=== PATIENT | female | born 1970 | race Hispanic/Latino ===

== ENCOUNTER 2019-06-30 19:24 | Emergency (ER) | payer BC ==
[2019-06-30] MEDS ORDERED: HYDROCODONE/APAP 10/325 TAB ONE (19:55)
--- NOTE | 2019-06-30 20:24 | RAD REPORT ---
EXAM DESCRIPTION: RAD - Shoulder Left 2 View - 06/30/2019 7:54 pm CLINICAL HISTORY: Nontraumatic left shoulder pain COMPARISON: None. TECHNIQUE: Internal and external rotation views of the left shoulder were obtained. FINDINGS: There is no fracture or dislocation. AC joint is normal in appearance. Acromial humeral erica int space is normal. Oval calcifications are present adjacent to the greater tuberosity. This is a ty pical calcific tendinitis appearance IMPRESSION: Left shoulder calcific tendinitis pattern. This can explain left shoulder pain.
[2019-06-30] MEDS ORDERED: KETOROLAC 30 MG/ML INJ ONE (20:49)
--- NOTE | 2019-06-30 21:11 | ER ---
Nurse's Notes [facility] Name: Trevor Mayberry Age: 48 yrs Sex: Female : 1970 Arrival Date: 06/30/2019 Time: 19:30 Bed 15 Private MD: Diagnosis: Pain in left shoulder Presentation: 06/30 19:39 Presenting complaint: Patient states: L shoulder pain with ROM x 2 days. Denies injury. aa1 CMS intact. Transition of care: patient was not received from another setting of care. Onset of symptoms was June 28, 2019. Risk Assessment: Do you want to hurt yourself or someone else? Patient reports no desire to harm self or others. Initial Sepsis Screen: Does the patient meet any 2 criteria? No. Patient's initial sepsis screen is negative. Does the patient have a suspected source of infection? No. Patient's initial sepsis screen is negative. Care prior to arrival: None. 19:39 Method Of Arrival: Ambulatory aa1 19:39 Acuity: AWAIS 4 aa1 Triage Assessment: 19:39 General: Appears in no apparent distress. comfortable, Behavior is calm, cooperative, aa1 appropriate for age. Historical: - Allergies: 19:53 No Known Allergies; aa1 - Home Meds: 19:53 Januvia 100 mg oral tab 1 tab once daily [Active]; lisinopril 10 mg Oral tab [Active]; aa1 rosuvastatin 40 mg oral tab 1 tab once daily [Active]; anastrozole 1 mg oral tab 1 tab once daily [Active]; metformin 1,000 mg Oral tab 1 tab 2 times per day [Active]; - PMHx: 19:53 Diabetes - NIDDM; High Cholesterol; Hypertension; Cancer, Breast; aa1 - PSHx: 19:53 Hysterectomy; Mastectomy, Right; aa1 - Immunization history:: Flu vaccine is up to date. - Social history:: Smoking status: Patient/guardian denies using tobacco. - Ebola Screening: : No symptoms or risks identified at this time. Screenin:56 Abuse screen: Denies threats or abuse. Nutritional screening: No deficits noted. jb4 Tuberculosis screening: No symptoms or risk factors identified. Fall Risk None identified. Assessment: 19:56 General: Appears in no apparent distress. uncomfortable, Behavior is calm, cooperative, jb4 appropriate for age. Pain: Complains of pain in anterior aspect of left shoulder and left bicep Pain does not radiate. Pain currently is 10 out of 10 on a pain scale. Quality of pain is described as It just hurts really bad. Neuro: Level of Consciousness is awake, alert, obeys commands, Oriented to person, place, time, situation. Cardiovascular: Patient's skin is warm and dry. Respiratory: Airway is patent Respiratory effort is even, unlabored, Respiratory pattern is regular, symmetrical. GI: No deficits noted. No signs and/or symptoms were reported involving the gastrointestinal system. : No deficits noted. No signs and/or symptoms were reported regarding the genitourinary system. EENT: No deficits noted. No signs and/or symptoms were reported regarding the EENT system. Derm: Skin is intact, Skin is pink, warm \T\ dry. Musculoskeletal: Circulation, motion, and sensation intact. Range of motion: intact in all extremities. 21:20 Reassessment: Patient appears in no apparent distress at this time. Patient and/or jb4 family updated on plan of care and expected duration. Pain level reassessed. Patient is alert, oriented x 3, equal unlabored respirations, skin warm/dry/pink. PT verbalized understanding of d/c and follow up instructions. Vital Signs: 19:39 BP 185 / 100; Pulse 87; Resp 16; Temp 99.4; Pulse Ox 100% on R/A; Weight 72.57 kg; aa1 Height 5 ft. 0 in. (152.40 cm); Pain 4/10; 21:20 BP 160 / 100; Pulse 90; Resp 18; Pulse Ox 100% on R/A; jb4 19:39 Body Mass Index 31.25 (72.57 kg, 152.40 cm) aa1 ED Course: 19:30 Patient arrived in ED. cf2 19:35 Marlon Renteria PA is PHCP. jmm 19:35 Ilya Conley MD is Attending Physician. jmm 19:39 Arm band placed on right wrist. aa1 19:46 Triage completed. aa1 19:51 Alton Spring, NOBLE is Primary Nurse. jb4 19:53 X-ray completed. jr1 19:55 Shoulder Left (2 View) XRAY In Process Unspecified. EDMS 19:56 Patient has correct armband on for positive identification. Bed in low position. Call jb4 light in reach. Side rails up X 1. Pulse ox on. NIBP on. 21:09 Ronnell Mora MD is Referral Physician. ilya 21:20 No provider procedures requiring assistance completed. Patient did not have IV access jb4 during this emergency room visit. Administered Medications: 19:55 Drug: Minto 10 mg-325 mg 1 tabs {Note: Rass score of 0.} Route: PO; jb4 20:25 Follow up: Response: No adverse reaction; Pain is decreased; RASS: Alert and Calm (0) jb4 20:51 Drug: Ketorolac 30 mg Route: IM; Site: right gluteus; 21:15 Follow up: Response: No adverse reaction; Pain is decreased jb4 Outcome: : Discharge ordered by . astrid 21:20 Discharged to home ambulatory, with family. jb4 21:20 Condition: stable 21:20 Discharge instructions given to patient, family, Instructed on discharge instructions, follow up and referral plans. medication usage, Demonstrated understanding of instructions, follow-up care, medications, Prescriptions given X 2. 21:25 Patient left the ED. jb4 Signatures: Dispatcher [employer] EDMS Megan Salmeron RN RN aa1 Marlon Renteria PA PA jmm Ringgold, Jennifer jr1 Alton Spring, NOBLE RN jb4 Una Pond [place] 2
--- NOTE | 2019-06-30 21:11 | EDPHYS ---
Physician Documentation [facility] Name: Trevor Mayberry Age: 48 yrs Sex: Female : 1970 Arrival Date: 06/30/2019 Time: 19:30 Bed 15 Private MD: ED Physician Ilya Conley HPI: 06/30 19:39 This 48 yrs old Female presents to ER via Ambulatory with complaints of jmm Shoulder Pain. 19:39 The patient or guardian complains of pain. Onset: The symptoms/episode began/occurred jmm gradually, 1 day(s) ago. Modifying factors: the symptoms are alleviated by remaining still, The symptoms are aggravated by movement. This is a 48 year old female with no chronic medical conditions that presents to the ED with complaints of left shoulder pain. 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 Denies known injury. Denies chest pain. Historical: - Allergies: 19:53 No Known Allergies; aa1 - Home Meds: 19:53 Januvia 100 mg oral tab 1 tab once daily [Active]; lisinopril 10 mg Oral tab [Active]; aa1 rosuvastatin 40 mg oral tab 1 tab once daily [Active]; anastrozole 1 mg oral tab 1 tab once daily [Active]; metformin 1,000 mg Oral tab 1 tab 2 times per day [Active]; - PMHx: 19:53 Diabetes - NIDDM; High Cholesterol; Hypertension; Cancer, Breast; aa1 - PSHx: 19:53 Hysterectomy; Mastectomy, Right; aa1 - Immunization history:: Flu vaccine is up to date. - Social history:: Smoking status: Patient/guardian denies using tobacco. - Ebola Screening: : No symptoms or risks identified at this time. ROS: 19:39 Constitutional: Negative for fever, chills, and weight loss, Cardiovascular: Negative jmm for chest pain, palpitations, and edema, Respiratory: Negative for shortness of breath, cough, wheezing, and pleuritic chest pain. 19:39 MS/extremity: Positive for pain. 19:39 All other systems are negative. Exam: 19:39 Constitutional: This is a well developed, well nourished patient who is awake, alert, jmm and in no acute distress. Head/Face: atraumatic. Eyes: EOMI, no conjunctival erythema appreciated ENT: Moist Mucus Membranes Neck: Trachea midline, Supple Chest/axilla: Normal chest wall appearance and motion. Cardiovascular: Regular rate and rhythm. 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 . 19:39 Skin: Appearance: Color: normal in color. 19:39 Neuro: Orientation: is normal, Mentation: is normal, Memory: is normal. 19:39 Psych: Behavior/mood is pleasant, cooperative. Vital Signs: 19:39 BP 185 / 100; Pulse 87; Resp 16; Temp 99.4; Pulse Ox 100% on R/A; Weight 72.57 kg; aa1 Height 5 ft. 0 in. (152.40 cm); Pain 4/10; 21:20 BP 160 / 100; Pulse 90; Resp 18; Pulse Ox 100% on R/A; jb4 19:39 Body Mass Index 31.25 (72.57 kg, 152.40 cm) aa1 MDM: 19:39 Patient medically screened. [facility] 20:54 Data reviewed: vital signs, nurses notes. [facility] 21:05 Data reviewed: radiologic studies, plain films. Counseling: I had a detailed discussion [facility] with the patient and/or guardian regarding: the historical points, exam findings, and any diagnostic results supporting the discharge/admit diagnosis, radiology results, the need for outpatient follow up, to return to the emergency department if symptoms worsen or persist or if there are any questions or concerns that arise at home. ED course: Patient is alert and non toxic in appearance in the ED. Patient is advised to follow up with ortho and otherwise given strict return precautions. Patient understood and agrees with the plan of care. . 06/30 19:43 Order name: Shoulder Left (2 View) XRAY; Complete Time: 20:29 [facility] Administered Medications: 19:55 Drug: [place] 10 mg-325 mg 1 tabs {Note: Rass score of 0.} Route: PO; jb 20:25 Follow up: Response: No adverse reaction; Pain is decreased; RASS: Alert and Calm (0) [facility] 20:51 Drug: Ketorolac 30 mg Route: IM; Site: right gluteus; wh 21:15 Follow up: Response: No adverse reaction; Pain is decreased jb4 Disposition: 06/30/19 21:09 Discharged to Home. Impression: Pain in left shoulder. - Condition is Stable. - Discharge Instructions: Shoulder Pain. - Prescriptions for Ibuprofen 800 mg Oral Tablet - take 1 tablet by ORAL route every 12 hours As needed take with food; 20 tablet. orphenadrine citrate 100 mg Oral Tablet Sustained Release - take 1 tablet by ORAL route 2 times per day As needed; 20 tablet. - Medication Reconciliation Form, Thank You Letter, Antibiotic Education, Prescription Opioid Use, Work release form form. - Follow up: Ronnell Mora MD; When: 2 - 3 days; Reason: Recheck today's complaints, Continuance of care, Re-evaluation by your physician. Addendum: 07/04/2019 14:47 Co-signature as Attending Physician, Ilya Conley MD. g s Signatures: Dispatcher [employer] EDMS Megan Salmeron RN RN aa1 Marlon Renteria PA PA jmm Bryson, James, RN RN jb4 Una Pond Ilya Conley MD MD Corrections: (The following items were deleted from the chart) 06/30 21:25 21:09 06/30/2019 21:09 Discharged to Home. Impression: Pain in left shoulder. Condition jb4 is Stable. Forms are Medication Reconciliation Form, Thank You Letter, Antibiotic Education, Prescription Opioid Use. Follow up: Dr. Ronnell Mora; When: 2 - 3 days; Reason: Recheck today's complaints, Continuance of care, Re-evaluation by your physician. astrid
[2019-06-30 21:30] VITALS: BP 185/100; TEMP 99.4; O2SAT 100
== END 2019-06-30 21:25 | disposition home or self-care (01) ==
LOC: ER 19:24
DX: M25.512 Pain in left shoulder (principal); I10 Essential (primary) hypertension; E11.9 Type 2 diabetes mellitus without complications; E78.00 Pure hypercholesterolemia, unspecified; Z85.3 Personal history of malignant neoplasm of breast; Z90.11 Acquired absence of right breast and nipple
CPT/HCPCS: 96372; 99284

== ENCOUNTER 2024-06-08 19:06 | Emergency (ER) | payer BC ==
[2024-06-08] MEDS ORDERED: METHOCARBAMOL 1,000 MG/10 ML VIAL ONE (19:54)
[2024-06-08] MEDS ORDERED: NA CHLORIDE 0.9% 100 ML ONE (19:55)
[2024-06-08] MEDS ORDERED: KETOROLAC 30 MG/ML INJ ONE (19:55)
[2024-06-08] MEDS ORDERED: NA CHLORIDE 0.9% 1,000 ML ONE (19:55)
[2024-06-08 20:01] LABS: Absolute Basophils 0.1 K/uL (0-0.5); Absolute Eosinophils 0.1 K/uL (0-0.5); Absolute Lymphocytes (CBC) 3.7 K/uL (0.7-4.9); Absolute Monocytes 0.7 K/uL (0.1-1.3); Absolute Neutrophil 6.3 K/uL (1.8-8.0); Basophils % 0.5 % (0-1.3); Eosinophils % 0.8 % (0-4.4); Hematocrit 39.5 % (36.0-45.0); Hemoglobin 13.1 g/dL (12.0-15.0); MCH 27.1 pg (27.0-35.0); MCHC 33.2 g/dL (32.0-36.0); MCV 81.6 fL (80-100); MPV 7.9 fL (7.6-11.3); Monocytes % 6.1 % (3.3-12.3); Neutrophils % 58.6 % (41.7-73.7); Nucleated Red Blood Cells % 0.1 % (0-0); Platelets 235 thou/uL (152-406); RBC Red Blood Cell Count 4.84 M/uL (3.86-4.86); Red Cell Distribution Width 15.6 % (12.1-15.2)
[2024-06-08 20:02] LABS: PT Prothrombin Time 10.7 SECONDS (9.4-12.5); Protime INR 0.95
[2024-06-08 20:24] LABS: ALT/SGPT 32 U/L (13-56); AST/SGOT 18 U/L (15-37); Albumin 3.9 g/dL (3.4-5.0); Albumin/Globulin Ratio 0.8 (1.1-1.8); Alkaline Phosphatase 161 U/L (45-117); Anion Gap 12.2 mEq/L (5.0-15.0); BUN Blood Urea Nitrogen 18 mg/dL (7-18); Bicarbonate 22 mEq/L (21-32); Bilirubin Total 0.2 mg/dL (0.2-1.0); Globulin 5.1 g/dL (2.3-3.5); Glomerular Filtration Rate 56 ml/min (=/>90); Glucose Level 370 mg/dL (74-106); Magnesium 2.2 mg/dL (1.6-2.4); NT PRO-BNP 36 pg/mL (<125); Potassium 4.2 mEq/L (3.5-5.1); Sodium Level 136 mEq/L (136-145); Troponin High Sensitivity 3.1 pg/mL (<58.9)
[2024-06-08 20:29] LABS: Bilirubin Direct < 0.2 mg/dL (0-0.2)
[2024-06-08] MEDS ORDERED: INSULIN REGULAR (HUMAN) 100 UNIT/ML ONE (20:50)
--- NOTE | 2024-06-08 21:02 | RAD REPORT ---
EXAM DESCRIPTION: US - Abdomen Exam Limited - 06/08/2024 8:09 pm CLINICAL HISTORY: ruq pain COMPARISON: Abdomen Pelvis W/Wo Contrast dated 01/12/2024 TECHNIQUE: Sonographic grayscale and color flow images of the right upper abdominal quadrant were o btained. FINDINGS: The gallbladder is somewhat contracted limiting evaluation, but demonstrates no gallstones . No pericholecystic fluid or gallbladder wall thickening. The common bile duct is normal measuring 2 mm. The liver demonstrates no findings of intrahepatic biliary dilatation. IMPRESSION: Negative right upper quadrant ultrasound.
--- NOTE | 2024-06-08 21:02 | RAD REPORT ---
[facility] CLINICAL HISTORY: back pain COMPARISON: Chest Pa And Lat (2 Views) dated 03/24/2023; CHEST PA AND LAT 2 VIEW dated 05/26/2008 TECHNIQUE: Portable AP view of the chest. FINDINGS: The lungs are clear. No pneumothorax or effusion. The cardiomediastinal contours are unre markable. IMPRESSION: No acute cardiopulmonary process.
--- NOTE | 2024-06-08 22:18 | ER ---
Nurse's Notes [facility] Name: Treovr Mayberry Age: 53 yrs Sex: Female : 1970 Arrival Date: 06/08/2024 Time: 19:06 Bed 15 Private MD: Diagnosis: Dorsalgia, unspecified;Chest pain, unspecified;Upper abdominal pain, unspecified;Diabetes mellitus due to underlying condition with hyperglycemia Presentation: 06/08 19:21 Chief complaint: Patient states: Left shoulder pain that radiates to back and chest cm10 onset last night. Pt describes the pain as a sharp pain. Pt states that the pain is worse with movement and deep breaths. Coronavirus screen: Client denies travel out of the [place] in the last 14 days. At this time, the client does not indicate any symptoms associated with coronavirus-19. Ebola Screen: Patient denies travel to an Ebola-affected area in the 21 days before illness onset. No symptoms or risks identified at this time. Initial Sepsis Screen: Does the patient meet any 2 criteria? HR > 90 bpm. Does the patient have a suspected source of infection? No. Patient's initial sepsis screen is negative. Risk Assessment: Do you want to hurt yourself or someone else? Patient reports no desire to harm self or others. Onset of symptoms was June 08, 2024 at 19:22. 19:21 Method Of Arrival: Ambulatory cm10 19:21 Acuity: AWAIS 2 cm10 Triage Assessment: 19:23 General: Appears in no apparent distress. uncomfortable, Behavior is calm, cooperative. cm10 Neuro: No deficits noted. Level of Consciousness is awake, alert, obeys commands, Oriented to person, place, time, situation, Appropriate for age. 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 - Infectious Disease History:: Denies. - Social history:: Smoking status: Patient denies any tobacco usage or history of. Screenin:00 [facility] ED Fall Risk Assessment (Adult) History of falling in the last 3 months, rg5 including since admission No falls in past 3 months (0 pts) Confusion or Disorientation No (0 pts) Intoxicated or Sedated No (0 pts) Impaired Gait No (0 pts) Mobility Assist Device Used No (0 pt) Altered Elimination No (0 pt) Score/Fall Risk Level 0 - 2 = Low Risk Oriented to surroundings, Maintained a safe environment, Educated pt \T\ family on fall prevention, incl call for assistance when getting out of bed, Hourly rounding (assess needs \T\ fall precautionary measures) done. 21:00 Abuse screen: Denies threats or abuse. Nutritional screening: No deficits noted. rg5 Tuberculosis screening: No symptoms or risk factors identified. Assessment: 20:35 Pain: Pain does not radiate. rg5 20:35 Cardiovascular: Heart tones S1 S2 Capillary refill < 3 seconds Patient's skin is warm rg5 and dry. Respiratory: Airway is patent Trachea midline Respiratory effort is even, Respiratory pattern is regular. 20:35 Pain: Quality of pain is described as aching, Pain began 1 day ago. rg5 21:25 Reassessment: Patient and/or family updated on plan of care and expected duration. Pain rg5 level reassessed. Patient is alert, oriented x 3, equal unlabored respirations, skin warm/dry/pink. Patient states feeling better. 22:00 Reassessment: Patient and/or family updated on plan of care and expected duration. Pain rg5 level reassessed. Patient is alert, oriented x 3, equal unlabored respirations, skin warm/dry/pink. Patient states feeling better. Patient states symptoms have improved. Vital Signs: 19:21 BP 171 / 100; Pulse 98; Resp 18; Temp 97.3; Pulse Ox 97% on R/A; Weight 70.31 kg; cm10 Height 5 ft. 0 in. ; Pain 8/10; 20:56 BP 165 / 93; Pulse 89; Resp 17; Pulse Ox 97% ; Pain 8/10; rg5 21:45 BP 137 / 85; Pulse 79; Resp 17; Temp 98; Pulse Ox 99% on R/A; Pain 0/10; rg5 19:21 Body Mass Index 30.27 (70.31 kg, 152.4 cm) cm10 19:21 Pain Scale: Adult cm10 20:56 Pain Scale: Adult rg5 21:45 Pain Scale: Adult rg5 ED Course: 19:08 Patient arrived in ED. mr 19:10 Guillaume Ramirez PA is PHCP. cp 19:10 Mya Harrell MD is Attending Physician. cp 19:22 Triage completed. cm10 19:24 Arm band placed on Patient placed in an exam room, on a stretcher. EKG completed in cm10 triage. Results shown to MD. 19:31 EKG done, by ED staff, reviewed by Gulilaume PABON. cm10 19:36 Jeremias Abbott, NOBLE is Primary Nurse. rg5 19:57 XRAY Chest (1 view) In Process Unspecified. EDMS 20:00 Patient maintains SpO2 saturation greater than 95% on room air. rg5 20:11 US Abdomen Limited In Process Unspecified. EDMS 20:24 Aravind Beckford MD is Attending Physician. cp 21:00 Awaiting lab results. rg5 21:00 Patient has correct armband on for positive identification. Bed in low position. Call rg5 light in reach. Side rails up X 1. Client placed on continuous cardiac and pulse oximetry monitoring. NIBP monitoring applied. monitoring manager on. Pulse ox on. Door closed. Noise minimized. Warm blanket given. 21:00 No provider procedures requiring assistance completed. Inserted saline lock: 20 gauge rg5 in left antecubital area, using aseptic technique. Blood collected. Flushed with 10 mL NS. 22:12 IV discontinued, bleeding controlled, No redness/swelling at site. Pressure dressing rg5 applied. 22:15 Provided Education on: post er care. rg5 Administered Medications: 19:45 Drug: Methocarbamol IVPB 1 grams IVPB once over 1 hrs; (mix in NS 100 mL) Route: IVPB; rg5 Infused Over: 1 hrs; Site: left antecubital; 21:58 Follow up: Response: No adverse reaction; Pain is decreased; IV Status: Completed rg5 infusion; IV Intake: 100ml 19:45 Drug: NS 0.9% IV 1000 ml IV at 999 bolus Per protocol Route: IV; Rate: 999 bolus; Site: rg5 left antecubital; 21:00 Follow up: IV Status: Completed infusion; IV Intake: 1000ml rg5 19:45 Drug: Ketorolac IVP 15 mg IVP once Route: IVP; Site: left antecubital; rg5 21:57 Follow up: Response: No adverse reaction; Pain is decreased rg5 19:46 CANCELLED (Physician Discretion): ns 0.9% 1000 ml IV at 1 bolus Per protocol; 1000 mL cp bolus 20:52 Drug: Insulin Regular Human IVP 10 units IVP once {Co-Signature: vc1 (Dory Arechiga5 RN).} Route: IVP; Site: left antecubital; 21:57 Follow up: Response: No adverse reaction; Pain is decreased rg5 Medication: 20:35 VIS not applicable for this client. rg5 Intake: 21:00 IV: 1000ml; Total: 1000ml. rg5 21:58 IV: 100ml; Total: 1100ml. rg5 Outcome: 22:17 Discharge ordered by MD. cp 22:30 Discharged to home ambulatory, rg5 22:30 Condition: stable 22:30 Discharge instructions given to patient, Instructed on discharge instructions, follow up and referral plans. Demonstrated understanding of instructions, follow-up care, medications, Prescriptions given X 2, 22:31 Patient left the ED. rg5 Signatures: Dispatcher [employer] EDMS Sydney Echevarria, Reg Reg mr Guillaume Ramirez, PA PA Beatrice Penaloza, RN RN cm10 Jeremias Abbott RN RN rg5 Dory Arechiga RN vc1
--- NOTE | 2024-06-08 22:18 | EDPHYS ---
Physician Documentation [facility] Name: Trevor Mayberry Age: 53 yrs Sex: Female : 1970 Arrival Date: 06/08/2024 Time: 19:06 Bed 15 Private MD: ED Physician Aravind Beckford HPI: 06/08 19:50 This 53 yrs old Female presents to ER via Ambulatory with complaints of Chest cp Tightness, Back Pain. 19:50 The patient presents with pain that is acute, with no known mechanism of injury. The cp symptoms are located in the left trapezius, left scapular area and left subscapular area. Onset: The symptoms/episode began/occurred yesterday. 19:50 The pain radiates to the left shoulder and left side of chest. Associated signs and cp symptoms: Pertinent negatives: abdominal pain, fever, headache, incontinence, numbness, tingling, weakness. The problem was sustained from unknown cause. Modifying factors: the patient symptoms are aggravated by movement. 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 - Infectious Disease History:: Denies. - Social history:: Smoking status: Patient denies any tobacco usage or history of. ROS: 19:55 Constitutional: Negative for body aches, chills, fever, poor PO intake, cp 19:55 Eyes: Negative for injury, pain, redness, and discharge, cp 19:55 Neck: Negative for pain with movement, pain at rest, stiffness, 19:55 Cardiovascular: Positive for chest pain, Negative for edema, palpitations, 19:55 Respiratory: Negative for cough, shortness of breath, wheezing, 19:55 Abdomen/GI: Positive for of the right upper quadrant, tenderness, Negative for vomiting, diarrhea, constipation, 19:55 Back: Positive for pain at rest, pain with movement, 19:55 Skin: Negative for rash, 19:55 All other systems are negative, Exam: 19:35 ECG was reviewed by the Attending Physician. cp 20:00 Constitutional: The patient appears in no acute distress, alert, awake, cp non-diaphoretic, non-toxic, well developed, well nourished, uncomfortable, 20:00 Head/Face: Normocephalic, atraumatic. cp 20:00 Eyes: Periorbital structures: appear normal, Conjunctiva: normal, no exudate, no injection, Sclera: no appreciated abnormality, Lids and lashes: appear normal, 20:00 ENT: External ear(s): are unremarkable, Nose: is normal, Mouth: Lips: moist, Oral mucosa: pink and intact, moist, Posterior pharynx: Airway: no evidence of obstruction, patent, 20:00 Neck: ROM/movement: is normal, is supple, without pain, no range of motions limitations, 20:00 Chest/axilla: Inspection: normal, 20:00 Cardiovascular: Rate: normal, Rhythm: regular, Edema: is not appreciated, JVD: is not appreciated, 20:00 Respiratory: the patient does not display signs of respiratory distress, Respirations: normal, no use of accessory muscles, no retractions, labored breathing, is not present, Breath sounds: are clear throughout, no decreased breath sounds, no stridor, no wheezing, 20:00 Abdomen/GI: Inspection: abdomen appears normal, Bowel sounds: active, all quadrants, Palpation: soft, in all quadrants, mild abdominal tenderness, in the right upper quadrant, rebound tenderness, is not appreciated, 20:00 Back: pain, that is moderate, of the left trapezius, left scapular area and left subscapular area, ROM is painful, with all movement, vertebral tenderness, is not appreciated, 20:00 Neuro: Orientation: to person, place \T\ time. Mentation: is normal, Motor: moves all fours, strength is normal, Sensation: is normal, 20:00 Skin: cellulitis, is not appreciated, no rash present. cp Vital Signs: 19:21 BP 171 / 100; Pulse 98; Resp 18; Temp 97.3; Pulse Ox 97% on R/A; Weight 70.31 kg; cm10 Height 5 ft. 0 in. ; Pain 8/10; 20:56 BP 165 / 93; Pulse 89; Resp 17; Pulse Ox 97% ; Pain 8/10; rg5 21:45 BP 137 / 85; Pulse 79; Resp 17; Temp 98; Pulse Ox 99% on R/A; Pain 0/10; rg5 19:21 Body Mass Index 30.27 (70.31 kg, 152.4 cm) cm10 19:21 Pain Scale: Adult cm10 20:56 Pain Scale: Adult rg5 21:45 Pain Scale: Adult rg5 MDM: 19:34 Patient medically screened. cp 22:16 Data reviewed: vital signs, nurses notes, lab test result(s), EKG, radiologic studies, cp plain films, ultrasound, and as a result, I will discharge patient. 22:16 Differential diagnosis: Abdominal Aortic Aneurysm Cholelithiasis Pyelonephritis sprain, cp Ureterolithiasis. I considered the following discharge prescriptions or medication management in the emergency department Medications were administered in the Emergency Department. See MAR. Independent interpretation of the following test(s) in the Emergency Department EKG: See my EKG interpretation above. Counseling: I had a detailed discussion with the patient and/or guardian regarding the historical points, exam findings, and any diagnostic results supporting the discharge/admit diagnosis, lab results, radiology results, to return to the emergency department if symptoms worsen or persist or if there are any questions or concerns that arise at home. Response to treatment: the patient's symptoms have markedly improved after treatment, and as a result, I will discharge patient. 06/08 19:46 Order name: Basic Metabolic Panel; Complete Time: 20:30 cp 06/08 20:30 Interpretation: Normal except: GLUC 370; CRE 1.15; GFR 56. cp 06/08 19:46 Order name: CBC with Diff; Complete Time: 20:30 cp 06/08 21:20 Interpretation: Normal except: RDW 15.6. cp 06/08 19:46 Order name: LFT's; Complete Time: 20:30 cp 06/08 19:46 Order name: Magnesium; Complete Time: 20:30 cp 06/08 19:46 Order name: NT PRO-BNP; Complete Time: 20:30 cp 06/08 19:46 Order name: PT-INR; Complete Time: 20:30 cp 06/08 19:46 Order name: Troponin HS; Complete Time: 20:30 cp 06/08 20:31 Order name: D-Dimer; Complete Time: 21:20 cp 06/08 22:13 Order name: Glucose, Ancillary Testing EDMS 06/08 19:46 Order name: XRAY Chest (1 view); Complete Time: 21:20 cp 06/08 21:20 Interpretation: Report review. cp 06/08 19:46 Order name: US Abdomen Limited; Complete Time: 21:20 cp 06/08 21:20 Interpretation: Report reviewed. cp 06/08 19:46 Order name: EKG; Complete Time: 19:46 cp 06/08 19:46 Order name: Cardiac monitoring; Complete Time: 19:48 cp 06/08 19:46 Order name: EKG - Nurse/Tech; Complete Time: 19:48 cp 06/08 19:46 Order name: IV Saline Lock; Complete Time: 19:48 cp 06/08 19:46 Order name: Labs collected and sent; Complete Time: 19:48 cp 06/08 19:46 Order name: O2 Per Protocol; Complete Time: 19:48 cp 06/08 19:46 Order name: O2 Sat Monitoring; Complete Time: 19:48 cp 06/08 19:46 Order name: NPO; Complete Time: 19:48 cp EC:35 Rate is 94 beats/min. Rhythm is regular. [place] interval is normal. QRS interval is normal. cp QT interval is normal. T waves are Inverted in lead aVR. Interpreted by me. Reviewed by me. Administered Medications: 19:45 Drug: Methocarbamol IVPB 1 grams IVPB once over 1 hrs; (mix in NS 100 mL) Route: IVPB; rg5 Infused Over: 1 hrs; Site: left antecubital; 21:58 Follow up: Response: No adverse reaction; Pain is decreased; IV Status: Completed rg5 infusion; IV Intake: 100ml 19:45 Drug: NS 0.9% IV 1000 ml IV at 999 bolus Per protocol Route: IV; Rate: 999 bolus; Site: rg5 left antecubital; 21:00 Follow up: IV Status: Completed infusion; IV Intake: 1000ml rg5 19:45 Drug: Ketorolac IVP 15 mg IVP once Route: IVP; Site: left antecubital; rg5 21:57 Follow up: Response: No adverse reaction; Pain is decreased rg5 19:46 CANCELLED (Physician Discretion): ns 0.9% 1000 ml IV at 1 bolus Per protocol; 1000 mL cp bolus 20:52 Drug: Insulin Regular Human IVP 10 units IVP once {Co-Signature: vc1 (Dory Arechiga rg5 RN).} Route: IVP; Site: left antecubital; 21:57 Follow up: Response: No adverse reaction; Pain is decreased rg5 Disposition: 06/09 00:32 Co-signature as Attending Physician, Aravind Beckford MD I agree with the assessment sp4 and plan of care. I reviewed the patient's care provided by the Advanced Practice Provider and agree with the diagnosis and treatment plan. Disposition Summary: 06/08/24 22:17 Discharge Ordered Notes: Location: Home cp Problem: new cp Symptoms: have improved cp Condition: Stable cp Diagnosis - Dorsalgia, unspecified cp - Chest pain, unspecified cp - Upper abdominal pain, unspecified cp - Diabetes mellitus due to underlying condition with hyperglycemia cp Followup: cp - With: Private Physician - When: 2 - 3 days - Reason: Recheck today's complaints Discharge Instructions: - Discharge Summary Sheet cp - Abdominal Pain, Adult cp - Acute Back Pain, Adult cp - Nonspecific Chest Pain, Adult cp - Hyperglycemia cp - Musculoskeletal Pain cp - Daily Diabetes Mellitus Record cp - Diabetes Mellitus and Nutrition, Adult cp - Back Exercises cp Forms: - Work release form ss - Medication Reconciliation Form cp - Antibiotic Education cp - Prescription Opioid Use cp - Patient Portal Instructions cp - Leadership Thank You Letter cp Prescriptions: - Diclofenac Sodium 75 mg Oral Tablet Sustained Release - take 1 tablet ORAL route 2 times per day; 30 tablet; Refills: 0, Product cp Selection Permitted - methocarbamol 750 mg Oral tablet - take 1 tablet ORAL route 3 times per day; 30 tablet; Refills: 0, Product cp Selection Permitted Signatures: Dispatcher [employer] EDMO Guillaume Ramirez PA PA cp Aravind Beckford MD MD sp4 Beatrice Shaw RN RN cm10 Jeremias Abbott RN RN rg5 Dory Arechiga RN vc1 Corrections: (The following items were deleted from the chart) 06/08 19:46 19:46 NS 0.9% IV 1000 ml IV at 1 bolus Per protocol; 1000 mL bolus ordered. cp cp
[2024-06-08 23:02] VITALS: BP 137/85; TEMP 98; O2SAT 99
--- NOTE | 2024-06-09 14:05 | EKG ---
Test Date: 2024-06-08 Test Time: 19:28:27 Business Services Representative: NIRAV MEASUREMENT RESULTS: Intervals: Rate: 94 DE: 162 QRSD: 76 QT: 362 QTc: 452 [place]: P: 45 DE: 162 QRS: 96 T: 68 INTERPRETIVE STATEMENTS: Normal sinus rhythm Normal ECG Compared to ECG 03/24/2023 11:16:35 Right-axis deviation no longer present Electronically Signed On 06-09-24 14:05:20 CDT by Shailesh Gurrola
== END 2024-06-08 22:31 | disposition home or self-care (01) ==
LOC: ER 19:06
DX: R07.9 Chest pain, unspecified (principal); M54.9 Dorsalgia, unspecified; R10.10 Upper abdominal pain, unspecified; E08.65 Diabetes mellitus due to underlying condition with hyperglycemia; I10 Essential (primary) hypertension
CPT/HCPCS: 96365; 93005; 85025; 80048; 36415; 83735; 85610; 82947; 85379; 80076; 84484; 83880; 71045; 76705; 96375; 99285; 96366; J2800; J7030